=== PATIENT | female | born 1995 | race Caucasian/White ===

== ENCOUNTER → 2020-10-10 | Outpatient (CLI) | payer BC ==
[~2020-10-10] MED LIST: KEFLEX CAP 500500 MG PO; ZOFRAN ODT 4 MG4 MG SL
== END ==
LOC: RAD 17:12
DX: R10.84 Generalized abdominal pain (principal)
CPT/HCPCS: 74019

== ENCOUNTER → 2021-07-09 | Outpatient (CLI) | payer BC | LOC: RAD 17:28 | DX: K92.1 Melena (principal); K59.00 Constipation, unspecified | CPT/HCPCS: 74019 ==

== ENCOUNTER → 2021-08-19 | Outpatient (CLI) | payer BC | LOC: MRI 13:00 | DX: G44.201 Tension-type headache, unspecified, intractable (principal) | CPT/HCPCS: 70553; A9577 ==